=== PATIENT | male | born 1960 | race Caucasian/White ===

== ENCOUNTER 2021-09-04 11:36 | Outpatient (CLI) | payer MEDICARE, MEDICAID | END 2021-09-04 11:37 | disposition home or self-care (01) | LOC: BICMRI 11:36 | PROVIDERS: ATTEND Psychiatry & Neurology Neurology | DX: Q85.01 Neurofibromatosis, type 1 (principal) | CPT/HCPCS: 82565 ==

== ENCOUNTER 2021-09-19 13:17 | Outpatient (CLI) | payer MEDICARE, MEDICAID ==
[2021-09-19] MEDS ORDERED: Iopamidol 370 76% 100 ML VIAL ONE (14:20)
== END 2021-09-19 13:18 | disposition home or self-care (01) ==
LOC: BICCT 13:17
PROVIDERS: ATTEND Psychiatry & Neurology Neurology
DX: Q85.01 Neurofibromatosis, type 1 (principal)
CPT/HCPCS: 70470; Q9967